=== PATIENT | female | born 2000 | race Caucasian/White ===

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

== ENCOUNTER 2021-01-03 14:23 | Emergency (ER) | payer BC, OTHER ==
[2021-01-03 14:57] LABS: Bilirubin Negative (Negative); Blood, Urine Negative (Negative); Clarity Clear (Clear); Glucose, Urine (Dipstick) Negative (Negative); Ketone, Urine Negative (Negative); Leukocyte Negative (Negative); Nitrite Negative (Negative); Pregnancy Test - Urine (BHCG) Negative (Negative); Pregu Control Background? CLEAR/WHITE (CLR/WHITE); Pregu Control Bar Appear? YES (CONTROL BAR); Protein, Urine (Dipstick) Negative (Neg-Trace); Specific Gravity 1.025 (1.002-1.036); Specific Gravity, Urine 1.025 (1.005-1.030); pH, Urine 7.5 (5.0-9.0)
[2021-01-04 07:45] LABS: SARS-CoV-2 PCR by NAA Not Detected (NotDetected)
== END 2021-01-03 15:35 | disposition home or self-care (01) ==
LOC: MADERS 14:23
DX: R53.1 Weakness (principal); R05 Cough; R42 Dizziness and giddiness; R06.02 Shortness of breath; R53.83 Other fatigue; R19.7 Diarrhea, unspecified; Z20.822 Contact with and (suspected) exposure to COVID-19; E11.9 Type 2 diabetes mellitus without complications; E28.2 Polycystic ovarian syndrome; E03.9 Hypothyroidism, unspecified; Z79.84 Long term (current) use of oral hypoglycemic drugs
CPT/HCPCS: 81003; 81025; 99283; U0003; U0005

== ENCOUNTER 2021-01-10 20:30 | Emergency (ER) | payer BC, OTHER ==
[2021-01-10] MEDS ORDERED: Ondansetron ODT 4 MG TAB ONE (21:53)
[2021-01-10 22:22] LABS: #Basophils 0.1 thou/uL (0.0-0.2); #Eosinphils 0.1 thou/uL (0.0-0.7); #Lymphocytes 4.4 thou/uL (1.20-3.40); #Monocytes 0.8 thou/uL (0.11-0.59); #Neutrophils 5.5 thou/uL (1.40-6.50); %Basophils 0.8 % (0.0-1.0); %Eosinophils 0.8 % (0.0-10.0); %Lymphocytes 40.2 % (21.0-51.0); %Monocytes 7.4 % (0.0-10.0); %Neutrophils 50.8 % (42.0-75.0); Hemoglobin 13.9 g/dL (12.0-16.0); Mean Corpuscular HGB CONC 32.7 g/dL (32.0-36.0); Mean Corpuscular Hemoglobin 30.2 pg (27.0-31.0); Mean Corpuscular Volume 92.2 fL (78.0-98.0); Platelet Count 381 thou/uL (130-400); RBC Distribution Width 12.7 % (11.5-14.5); Red Blood Cell (RBC) Count 4.62 mill/uL (4.20-5.40); White Blood Cell (WBC) Count 10.9 thou/uL (4.8-10.8)
[2021-01-10 22:32] LABS: BHCG - Serum Negative (NEGATIVE); Pregs Control Background? CLEAR/WHITE (CLR/WHITE); Pregs Control Bar Appear? YES (CONTROL BAR)
[2021-01-10 22:36] LABS: ALT (SGPT) 43 U/L (8-55); AST (SGOT) 24 U/L (5-34); Albumin 3.8 g/dL (3.5-5.0); Alkaline Phosphatase 58 U/L (40-110); Anion Gap 12 mmol/L (10-20); BUN (Urea Nitrogen) 7 mg/dL (7.0-18.7); Calc. Creatinine Clearance 0 mL/min (70-130); Calcium 9.6 mg/dL (7.8-10.44); Carbon Dioxide 27 mmol/L (22-29); Chloride 107 mmol/L (98-107); Glucose 104 mg/dL (70-105); Potassium 4.1 mmol/L (3.5-5.1); Protein, Total 6.8 g/dL (6.0-8.3); Sodium 142 mmol/L (136-145)
[2021-01-10] MEDS ORDERED: Lactated Ringer's 1,000 ML ONE (22:56)
[2021-01-10 22:58] LABS: Thyroid Stimulating Hormone 2.7558 uIU/mL (0.35-4.94)
[2021-01-10] MEDS ORDERED: Meclizine HCl 25 MG TAB ONE (23:38)
[2021-01-11 16:32] LABS: SARS-CoV-2 PCR by NAA DETECTED (NotDetected)
== END 2021-01-10 23:52 | disposition home or self-care (01) ==
LOC: MADERS 20:30
DX: U07.1 COVID-19 (principal); R42 Dizziness and giddiness; R53.1 Weakness; R10.84 Generalized abdominal pain; R11.2 Nausea with vomiting, unspecified; E66.9 Obesity, unspecified; E03.9 Hypothyroidism, unspecified; E11.9 Type 2 diabetes mellitus without complications; E28.2 Polycystic ovarian syndrome; F17.290 Nicotine dependence, other tobacco product, uncomplicated; Z79.84 Long term (current) use of oral hypoglycemic drugs
CPT/HCPCS: 36415; 80053; 84443; 84703; 85025; 93005; J7120; Q0162; U0003; U0005

== ENCOUNTER 2021-02-22 22:02 | Emergency (ER) | payer OTHER ==
[~2021-02-22 22:02] MED LIST changes: +Iopamidol 370 76% 100 ML VIAL ONE; -Sodium Chloride 0.9% 1,000 ML BAG ONE
[2021-02-22 22:25] LABS: #Basophils 0.1 thou/uL (0.0-0.2); #Eosinphils 0.1 thou/uL (0.0-0.7); #Lymphocytes 4.2 thou/uL (1.20-3.40); #Monocytes 0.6 thou/uL (0.11-0.59); #Neutrophils 4.9 thou/uL (1.40-6.50); %Basophils 0.9 % (0.0-1.0); %Eosinophils 1.3 % (0.0-10.0); %Lymphocytes 42.1 % (21.0-51.0); %Monocytes 5.9 % (0.0-10.0); %Neutrophils 49.8 % (42.0-75.0); Hemoglobin 14.7 g/dL (12.0-16.0); Mean Corpuscular HGB CONC 32.5 g/dL (32.0-36.0); Mean Corpuscular Volume 92.1 fL (78.0-98.0); Mean Platelet Volume 6.6 fL (7.4-10.4); Platelet Count 423 thou/uL (130-400); RBC Distribution Width 12.1 % (11.5-14.5); Red Blood Cell (RBC) Count 4.89 mill/uL (4.20-5.40); White Blood Cell (WBC) Count 9.9 thou/uL (4.8-10.8)
[2021-02-22 22:25] LABS: Bilirubin Negative (Negative); Blood, Urine Trace (Negative); Clarity Clear (Clear); Glucose, Urine (Dipstick) Negative (Negative); Ketone, Urine Negative (Negative); Leukocyte Negative (Negative); Nitrite Negative (Negative); Protein, Urine (Dipstick) Negative (Neg-Trace); Specific Gravity, Urine 1.025 (1.005-1.030)
[2021-02-22 22:30] LABS: RBC/HPF 0-3 HPF (0-3); WBC/HPF 0-3 HPF (0-3)
[2021-02-22 22:37] LABS: BHCG - Serum Negative (NEGATIVE); Pregs Control Background? CLEAR/WHITE (CLR/WHITE); Pregs Control Bar Appear? YES (CONTROL BAR)
[2021-02-22 22:43] LABS: ALT (SGPT) 64 U/L (8-55); AST (SGOT) 36 U/L (5-34); Albumin 4.1 g/dL (3.5-5.0); Alkaline Phosphatase 74 U/L (40-110); Anion Gap 14 mmol/L (10-20); BUN (Urea Nitrogen) 5 mg/dL (7.0-18.7); Bilirubin, Total 0.8 mg/dL (0.2-1.2); Calc. Creatinine Clearance 0 mL/min (70-130); Calcium 9.7 mg/dL (7.8-10.44); Carbon Dioxide 24 mmol/L (22-29); Chloride 107 mmol/L (98-107); Globulin 3.3 g/dL (2.4-3.5); Glucose 100 mg/dL (70-105); Lipase 62 U/L (8-78); Magnesium 1.6 mg/dL (1.6-2.6); Potassium 3.9 mmol/L (3.5-5.1); Protein, Total 7.4 g/dL (6.0-8.3); Sodium 141 mmol/L (136-145)
[2021-02-22] MEDS ORDERED: Ketorolac Tromethamine 30 MG/ML VIAL ONE (23:04)
== END 2021-02-23 01:28 | disposition short-term general hospital (02) ==
LOC: MADERS 22:02
DX: N83.202 Unspecified ovarian cyst, left side (principal); E03.9 Hypothyroidism, unspecified; F17.290 Nicotine dependence, other tobacco product, uncomplicated
CPT/HCPCS: 36415; 74177; 80053; 81003; 81015; 83690; 83735; 84703; 85025; 96374; J1885; Q9967

== ENCOUNTER 2021-11-09 17:15 | Emergency (ER) | payer OTHER, SELFPAY ==
[2021-11-09] MEDS ORDERED: Ibuprofen 600 MG TAB ONE (17:39)
[2021-11-09] MEDS ORDERED: Acetaminophen 500 MG TAB ONE (17:39)
[2021-11-09 17:44] LABS: Bilirubin Negative (Negative); Blood, Urine Trace (Negative); Clarity Clear (Clear); Glucose, Urine (Dipstick) Negative (Negative); Ketone, Urine Negative (Negative); Leukocyte Negative (Negative); Nitrite Negative (Negative); Protein, Urine (Dipstick) Negative (Neg-Trace); Specific Gravity, Urine 1.015 (1.005-1.030)
[2021-11-09 17:47] LABS: Pregnancy Test - Urine (BHCG) Negative (Negative); Pregu Control Background? CLEAR/WHITE (CLR/WHITE); Pregu Control Bar Appear? YES (CONTROL BAR); Specific Gravity 1.015 (1.002-1.036)
[2021-11-09 17:53] LABS: Bacteria/HPF Rare-Few HPF (None Seen); Squamous Epithelial 0-3 HPF (0-3); WBC/HPF 0-3 HPF (0-3)
[2021-11-09 18:46] LABS: #Basophils 0.1 thou/uL (0.0-0.2); #Lymphocytes 0.8 thou/uL (1.20-3.40); #Monocytes 0.7 thou/uL (0.11-0.59); #Neutrophils 3.3 thou/uL (1.40-6.50); %Basophils 1.8 % (0.0-1.0); %Eosinophils 0.6 % (0.0-10.0); %Lymphocytes 16.7 % (21.0-51.0); %Monocytes 13.9 % (0.0-10.0); %Neutrophils 67.1 % (42.0-75.0); Hemoglobin 13.9 g/dL (12.0-16.0); Mean Corpuscular HGB CONC 32.2 g/dL (32.0-36.0); Mean Corpuscular Hemoglobin 28.3 pg (27.0-31.0); Mean Corpuscular Volume 88.1 fL (78.0-98.0); Mean Platelet Volume 7.4 fL (7.4-10.4); Platelet Count 213 thou/uL (130-400); RBC Distribution Width 12.1 % (11.5-14.5); Red Blood Cell (RBC) Count 4.92 mill/uL (4.20-5.40)
[2021-11-09 19:00] LABS: ALT (SGPT) 42 U/L (8-55); AST (SGOT) 30 U/L (5-34); Alkaline Phosphatase 51 U/L (40-110); Anion Gap 15 mmol/L (10-20); BUN (Urea Nitrogen) 8 mg/dL (7.0-18.7); Bilirubin, Total 1.3 mg/dL (0.2-1.2); Calc. Creatinine Clearance 0 mL/min (70-130); Calcium 8.6 mg/dL (7.8-10.44); Carbon Dioxide 22 mmol/L (22-29); Chloride 103 mmol/L (98-107); Estimated GFR 124; Glucose 88 mg/dL (70-105); Lipase 29 U/L (8-78); Sodium 136 mmol/L (136-145)
== END 2021-11-09 19:51 | disposition home or self-care (01) ==
LOC: MADERS 17:15
DX: B34.9 Viral infection, unspecified (principal); R10.32 Left lower quadrant pain; E03.9 Hypothyroidism, unspecified; F17.290 Nicotine dependence, other tobacco product, uncomplicated
CPT/HCPCS: 74177; 80053; 81003; 81015; 81025; 83690; 85025; 87086; Q9967

== ENCOUNTER 2023-04-15 02:54 | Emergency (ER) | payer OTHER, BC ==
[2023-04-15] MEDS ORDERED: Acetaminophen 325 MG TAB ONE (03:44)
[2023-04-15] MEDS ORDERED: Ibuprofen 800 MG TAB ONE (03:44)
== END 2023-04-15 04:20 | disposition home or self-care (01) ==
LOC: MADERS 02:54
DX: S93.402A Sprain of unspecified ligament of left ankle, initial encounter (principal); F17.290 Nicotine dependence, other tobacco product, uncomplicated; W01.198A Fall on same level from slipping, tripping and stumbling with subsequent striking against other object, initial encounter; Y93.K9 Activity, other involving animal care

== ENCOUNTER 2024-05-28 21:36 | Emergency (ER) | payer BC, OTHER ==
[2024-05-28 22:05] LABS: Bilirubin Negative (Negative); Blood, Urine Negative (Negative); Clarity Clear (Clear); Glucose, Urine (Dipstick) Negative (Negative); Ketone, Urine Negative (Negative); Leukocyte Negative (Negative); Nitrite Negative (Negative); Protein, Urine (Dipstick) Trace mg/dL (Neg-Trace); Urobilinogen 0.2 mg/dL (Less than 2); pH, Urine 5.5 (5.0-9.0)
[2024-05-28 22:06] LABS: Specific Gravity, Urine 1.026 (1.002-1.036)
[2024-05-28 22:08] LABS: CAUTI Indications for Culture Pelvic or flank pain; Calcium Oxalate Crystals 3+ HPF (None Seen); RBC/HPF None Seen HPF (0-3); Squamous Epithelial 0-3 HPF (0-3); WBC/HPF None Seen HPF (0-3)
[2024-05-28 22:09] LABS: Pregnancy Test - Urine (BHCG) Negative (Negative); Pregu Control Background? CLEAR/WHITE (CLR/WHITE); Pregu Control Bar Appear? YES (CONTROL BAR); Specific Gravity 1.026 (1.002-1.036); Urine Culture Reflex No No
[2024-05-28] MEDS ORDERED: Ketorolac Tromethamine 30 MG (1 mL) VIAL ONE (22:11)
[2024-05-28 22:30] LABS: #Basophils 0.1 thou/uL (0.0-0.2); #Eosinophils 0.1 thou/uL (0.0-0.7); #Lymphocytes 3.5 thou/uL (1.20-3.40); #Monocytes 0.6 thou/uL (0.11-0.59); %Eosinophils 0.5 % (0.0-10.0); %Lymphocytes 34.1 % (21.0-51.0); %Monocytes 5.7 % (0.0-10.0); %Neutrophils 58.6 % (42.0-75.0); Hematocrit 44.4 % (36.0-47.0); Hemoglobin 14.1 g/dL (12.0-16.0); Mean Corpuscular HGB CONC 31.8 g/dL (32.0-36.0); Mean Corpuscular Hemoglobin 29.3 pg (27.0-31.0); Mean Corpuscular Volume 92.3 fl (78.0-98.0); Mean Platelet Volume 7.2 fL (7.4-10.4); Platelet Count 378 10x3/uL (130-400); RBC Distribution Width 12.5 % (11.5-14.5); Red Blood Cell (RBC) Count 4.81 mill/uL (4.20-5.40); White Blood Cell (WBC) Count 10.2 10x3/uL (4.8-10.8)
[2024-05-28 22:46] LABS: ALT (SGPT) 57 U/L (8-55); AST (SGOT) 31 U/L (5-34); Alkaline Phosphatase 56 U/L (40-110); Anion Gap 14 mmol/L (10-20); BUN (Urea Nitrogen) 8 mg/dL (7.0-18.7); Bilirubin, Total 0.9 mg/dL (0.2-1.2); Calc. Creatinine Clearance 0 mL/min (70-130); Calcium 9.2 mg/dL (7.8-10.44); Carbon Dioxide 25 mmol/L (22-29); Chloride 106 mmol/L (98-107); Estimated GFR 114; Globulin 3.2 g/dL (2.4-3.5); Glucose 78 mg/dL (70-105); Lipase 39 U/L (8-78); Potassium 3.8 mmol/L (3.5-5.1); Protein, Total 7.2 g/dL (6.0-8.3); Sodium 141 mmol/L (136-145)
[2024-05-28] MEDS ORDERED: Lidocaine 4% Patch ONE (23:10)
[2024-05-28] MEDS ORDERED: Acetaminophen 500 MG TAB ONE (23:10)
== END 2024-05-28 23:44 | disposition home or self-care (01) ==
LOC: MADERS 21:36
DX: K76.0 Fatty (change of) liver, not elsewhere classified (principal); F17.290 Nicotine dependence, other tobacco product, uncomplicated; R10.31 Right lower quadrant pain
CPT/HCPCS: 74177; 80053; 81001; 81025; 83690; 85025; 96374; J1885; Q9967